=== PATIENT | male | born 1985 | race African-American/Black ===

== ENCOUNTER 2016-12-16 09:48 | Emergency (ER) | payer OTHER ==
[2016-12-16] MEDS ORDERED: XYLOCAINE 2 % (PLAIN) ONE ×2 (09:50→10:34)
[2016-12-16] MEDS ORDERED: STERILE WATER IRRIGATION IR ONE (09:53)
[2016-12-16] MEDS ORDERED: NS IRRIGATION 1000 ML 1,000 ML ONE (10:11)
[2016-12-16] MEDS ORDERED: ANCEF VIAL 1 GM IM ONE (10:27)
[2016-12-16] MEDS ORDERED: ADACEL TDaP IM ONE ×2 (10:27→10:28)
[2016-12-16] MEDS ORDERED: ANCEF VIAL 1 GM ONE ×2 (10:28→10:47)
--- NOTE | 2016-12-16 10:43 | RAD ---
HISTORY: Trauma with laceration to the heel Study: 3 views of the left foot. Comparison: None Findings: No acute fracture or dislocation. Joint spaces are well aligned. Soft tissue laceration overlying t he calcaneus without underlying bony involvement. IMPRESSION: 1. Laceration as above without definite underlying bony involvement. Reported By:
[2016-12-16] MEDS ORDERED: ANCEF VIAL 1 GM 2 GM in NS 100 ML IV 100 ML IV ONE (10:44)
[2016-12-16] MEDS ORDERED: MORPHINE SULFATE INJ 4 MG IVP ONE (10:45)
[2016-12-16] MEDS ORDERED: ZOFRAN INJ 4 MG VIAL IVP ONE (10:45)
[2016-12-16 10:46] VITALS: BP 122/67; BMI 32.5
[2016-12-16] MEDS ORDERED: ZOFRAN INJ 4 MG VIAL ONE (10:47)
[2016-12-16] MEDS ORDERED: NS 1000 ML 1,000 ML ONE (10:47)
[2016-12-16] MEDS ORDERED: MORPHINE SULFATE INJ 4 MG ONE (10:48)
[2016-12-16] MEDS ORDERED: NS 50 ML IV 50 ML IV ONE (10:48)
[2016-12-16] MEDS ORDERED: NS 1000 ML 1,000 ML IV SCH (11:00)
--- NOTE | 2016-12-16 11:36 | DR.LACERAT ---
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 TD IS NOT UTD. - Complaints Chief Complaint Doctors Comments: LACERATION BACK LEFT HEEL. 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) Tetanus Vaccination: No - Severity Pain Severity: Severe Bleeding:: Uncontrolled - Associated Signs and Symptoms Associated Signs and Symptoms: None PMH - PMH Past Medical History: No Past Surgical History: No - Family History History of Family Medical Conditions: No - Social History Does patient currently use any type of tobacco product: Yes Have you used tobacco products in the last 12 months: Yes Type of Tobacco Use: Cigarettes Does any household member use tobacco: No Alcohol Use: None Do you use any recreational Drugs:: No Lives With: Other Lives [facility]: [facility] - infectious screening In the last 2 months have you had wt loss of >10#?: NO Have you had fever, night sweats or hemotysis?: No Have you traveled outside the country in the last 6 months?: No Isolation: Standard ROS - Review of Systems Constitutional: No Symptoms Reported Eyes: No Symptoms Reported ENTM: No Symptoms Reported Respiratoy: No Symptoms Reported Cardiovascular: No Symptoms Reported Gastrointestinal/Abdominal: No Symptoms Reported Genitourinary: No Symptoms Reported Neurological: No Symptoms Reported Musculoskeletal: Left, Foot (PAIN AND LACERATION) Integumentary: Wound ( AVUSION LAC LT HEEL 6CM AND 2CM.) Hematologic/Lymphatic: No Symptoms Reported Endocrine: No Symptoms Reported All Other Systems: Reviewed and Negative PE - Vital Signs Vitals: Temperature 98.9 F Pulse Rate 81 Respiratory Rate 18 Blood Pressure 122/67 O2 Sat by Pulse Oximetry 100 - General Limitations: No Limitations General Appearance: Alert - Head Head Exam: Normal Inspection - Eyes Eye exam: Normal Appearance - ENT ENT Exam: Normal Exam - Neck Neck Exam: Normal Inspection - Chest Chest Inspection: Symmetric Chest Wall Rise - Respiratory Respiratory Exam: Normal Lung Sounds Bilat Respiratory Exam: Bilateral Clear to Auscultation - Cardiovascular Cardiovascular Exam: Regular Rate, Normal Rhythm, Normal Heart Sounds - Abdominal Exam Abdominal Exam: Normal Bowel Sounds, Soft. negative: Tenderness - Extremities Extremities Exam: Tenderness (LACERATION LT HEEL.) - Back Back Exam: Normal Inspection - Neurologic Neurological Exam: Alert - Psychiatric Psychiatric Exam: Normal Affect, Normal Mood - Skin Skin Exam: Other (6CM LAC LEFT HEEL) Type of Lesion: Laceration, Other (TENDON INJURY) [facility] - Additional Information Obtained Additional Information Obtained From: Jazz Singer (PRINT LINE OPERATOR.) - Differential Diagnosis Differential Diagnosis: Avulsion, Contusion, Laceration Differential Diagnosis Comment: TENDON LACERATION Course - Treatment Treatment: SEE ORDERS TD, ANCEF, MORPHIN AND FOFRAN IN ED. - Reevaluation 1st: Improved - Consultation Consultation Comments: DISCUSS PATIENT WITH DR. MIKE. HE WILL SEE PATIENT IN HIS OFFICE TODAY FOR FURTHER MANAGEMENT. - Education/Counseling Education/Counseling: Patient, Education Educated On: Treatment, Diagnosis, Needs for Follow Up, Other (PRINT LINE OPERATOR.) ROR - XRAY XRAY Findings: REPORT DISCUSS WITH PATIENT AND PRINT LINE OPERATOR. Procedures - Laceration/Wound Repair Left Foot Wound Length (cm): 6 Wound's Depth, Shape: Irregular, Other (AVULSION SKIN FROM LACERATION) Wound Explored: contaminated Irrigated w/ Saline (ccs): 500 (BETADINE MIX WITH NS) Betadine Prep?: Yes (MIX WITH NS 500CC) Anesthesia: 2% Lidocaine Volume Anesthetic (ccs): 20 - Diagnosis Discharge Problem: Tendon laceration Laceration of left heel Qualifiers: Encounter type: initial encounter Qualified Code(s): S91.312A - Laceration without foreign body, left foot, initial encounter - Discharge Plan Disposition: [facility] Condition: Stable - Follow ups/Referrals Follow ups/Referrals: NFD,None [Primary Care Provider] - 3 days - Instructions Instructions: Laceration Care, Adult, [id number], Foot Contusion, Easy-to- Read, Tendon Injury Additional Instructions: TO DR. DAUGHERTY OFFICE NOW FOR FURTHER MANAGEMENT.
== END 2016-12-16 12:51 | disposition home or self-care (01) ==
LOC: ER 09:51
PROC: 0YQN0ZZ Repair Left Foot, Open Approach (ICD-10-PCS; principal; 2016-12-16)
DX: S96.2 Injury of intrinsic muscle and tendon at ankle and foot level (principal); S91.312A Laceration without foreign body, left foot, initial encounter; W28.XXXA Contact with powered lawn mower, initial encounter; Y92.9 Unspecified place or not applicable
CPT/HCPCS: 73630; 90471; 96365; 96367; 96374; 96375; 99283; 99285; A4217; A4222; J0690; J2001; J2270; J2405

== ENCOUNTER 2017-01-18 19:33 | Emergency (ER) | payer OTHER ==
[2017-01-18 19:37] VITALS: BMI 33.1
--- NOTE | 2017-01-18 19:38 | DR.GENAD ---
HPI - HPI Comment HPI Comment: HISTORY BELOW. - Complaint/Symptoms Chief Complaint Doctors Comments: FELL AT THE LONG TERM AND HAVE RIGHT FOOT AND ANKLE PAIN. LOWER BACK PAIN, RIGHT ELBOW PAIN, NECK PAIN AND HEADACHE. NO LOC. RECENT INJURY RIGHT FOOT. 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) - Timing Came on: Suddenly - Duration Duration: Constant Duration: Hours - Severity Severity: Moderate PMH - PMH Past Surgical History: No - Social History Do you use any recreational Drugs:: No ROS - Review of Systems Constitutional: No Symptoms Reported Eyes: No Symptoms Reported ENTM: No Symptoms Reported Respiratoy: No Symptoms Reported Cardiovascular: No Symptoms Reported Gastrointestinal/Abdominal: No Symptoms Reported Genitourinary: No Symptoms Reported Neurological: Headache Musculoskeletal: Back Pain, Joint Pain, Joint Swelling, Muscle Pain, Neck Pain, Elbow, Ankle, Foot Integumentary: Bruises Hematologic/Lymphatic: No Symptoms Reported Endocrine: No Symptoms Reported All Other Systems: Reviewed and Negative PE - Vital Signs Vitals: Temperature 98.1 F Pulse Rate [Left] 70 Pulse Rate 95 Respiratory Rate 18 Blood Pressure [Right Arm] 145/84 Blood Pressure 121/74 O2 Sat by Pulse Oximetry 99 - General Limitations: No Limitations General Appearance: Alert - Head Head Exam: Normal Inspection, Other (HEADACHE) - ENT ENT Exam: Normal Oropharynx, Normal External Ear Exam, Mucous Membranes Moist, TM's Normal Bilaterally External Ear Exam: Normal External Inspection TM/Canal Exam: Bilateral Normal Nose Exam: Normal Nose Exam Mouth Exam: Normal Inspection Throat Exam: Normal Inspection - Neck Neck Exam: Trachea Midline, Tenderness (POSTERIOR NECK TENDERNESS) - Chest Chest Inspection: Symmetric Chest Wall Rise - Respiratory Respiratory Exam: Normal Lung Sounds Bilat Respiratory Exam: Bilateral Clear to Auscultation - Cardiovascular Cardiovascular Exam: Regular Rate, Normal Rhythm, Normal Heart Sounds - Abdominal Exam Abdominal Exam: Normal Bowel Sounds, Soft. negative: Tenderness - Extremities Extremities Exam: Tenderness (RIGHT ELBOW, LEFT FOOT LEFT ANKLE TENDERNESS.) - Back Back Exam: Vertebral Tenderness (LUMBAR SPINE TENDERNESS.) - Neurologic Neurological Exam: Alert, Oriented X3, CN II-XII Intact, Reflexes Normal. negative: Motor Sensory Deficit - Psychiatric Psychiatric Exam: Anxious - Skin Skin Exam: Erythema MDM - Differential Diagnosis Differential Diagnosis: CONTUSION, STRAIN, SPRAIN, FRACTURE Course - Treatment Treatment: SEE ORDERS - Consultation Consultation Comments: DR. REGAN AT [facility] ACCEPTED PATIENT FOR TRANSFER. ROR - XRAY XRAY Interpreted by: Radiologist XRAY Findings: REPORT DISCUSS WITH PATIENT. - Diagnosis Discharge Problem: Strain of neck muscle Qualifiers: Encounter type: initial encounter Qualified Code(s): S16.1XXA - Strain of muscle, fascia and tendon at neck level, initial encounter Dislocation of cervical facet joint Qualifiers: Encounter type: initial encounter Qualified Code(s): S13.101A - Dislocation of unspecified cervical vertebrae, initial encounter Lumbar strain Qualifiers: Encounter type: initial encounter Qualified Code(s): S39.012A - Strain of muscle, fascia and tendon of lower back, initial encounter Elbow contusion Qualifiers: Encounter type: initial encounter Laterality: right Qualified Code(s): S50.01XA - Contusion of right elbow, initial encounter Foot contusion Qualifiers: Encounter type: initial encounter Laterality: left Qualified Code(s): S90.32XA - Contusion of left foot, initial encounter Ankle contusion Qualifiers: Encounter type: initial encounter Laterality: left Qualified Code(s): S90.02XA - Contusion of left ankle, initial encounter Closed head injury Qualifiers: Encounter type: initial encounter Qualified Code(s): S09.90XA - Unspecified injury of head, initial encounter - Discharge Plan Disposition: [facility] Condition: Stable - Follow ups/Referrals Follow ups/Referrals: NFD,None [Primary Care Provider] - 3 days - Instructions
--- NOTE | 2017-01-18 20:28 | CT ---
CT brain without contrast Indication: Fall with headache Comparison: None available Technique: Multiple axial images of the brain were obtained from the skull base to the vertex without administra tion of IV contrast. Coronal and sagittal images were also provided. Radiation dose reduction techniques were performed utilizing adjustment for MA/kVP based on patient body size. Findings: No acute intraparenchymal hemorrhage or mass can be identified. No extra-axial fluid collections are seen. No alteration in the attenuation of the brain parenchyma can be identified to suggest acute o r subacute ischemic change. The ventricular system is symmetric and nondilated. The extracranial st ructures are grossly unremarkable. IMPRESSION: 1. No acute intracranial process is identified. Reported By:
--- NOTE | 2017-01-18 20:33 | CT ---
CT cervical spine without contrast Indication: Fall with neck pain Comparison: None available Technique: Multiple axial images of the cervical spine were obtained from the skull base to the thora cic inlet without administration of IV contrast. Sagittal and coronal reformats were performed and r eviewed. Radiation dose reduction techniques were performed utilizing adjustment for MA/kVP based on patient body size. Findings: There is a unilateral right-sided locked C4 facet seen best on sagittal image 35. Alignment of the cervical spine is maintained. No evidence for acute cortical disruption or subluxat ion can be seen. The posterior elements appear unremarkable. The prevertebral soft tissues are norm al in their appearance. In addition, the surrounding paraspinous soft tissues are unremarkable. IMPRESSION: 1.Unilateral right-sided locked C4 facet, the acuity of this abnormality is questioned as no other in flammatory change or traumatic injury identified. Nonetheless given the risk for future neurologic in jury followup neurosurgical consultation/evaluation is recommended. 2. No acute vertebral body fracture or spondylolisthesis. Reported By:
--- NOTE | 2017-01-18 20:34 | CT ---
CT lumbar spine without contrast Indication: Fall with back pain Comparison: None available Technique: Multiple axial images of the lumbar spine were obtained from the upper abdomen to the pelv is without administration of IV contrast. Sagittal and coronal reformats were performed and reviewed . Radiation dose reduction techniques were performed utilizing adjustment for MA/kVP based on patient body size. Findings: Alignment of the lumbar spine is maintained. No evidence for acute cortical disruption or subluxatio n can be seen. The posterior elements appear unremarkable. The prevertebral soft tissues are normal in their appearance. In addition, the surrounding paraspinous soft tissues are unremarkable. IMPRESSION: 1. No evidence for traumatic injury of the lumbar spine. Reported By:
--- NOTE | 2017-01-18 20:58 | RAD ---
Three views of the left ankle. Indication: Ankle pain after fall Findings: Evaluation left ankle is limited by external casting material obscuring fine bone detail. T he there is mild soft tissue swelling within the left ankle. There is no fracture or malalignment of the ankle joint. Ankle mortise is symmetric. No osteochondral abnormality within talar dome. Impression: Mild soft tissue swelling within the left ankle without acute fracture or malalignment. Reported By:
--- NOTE | 2017-01-18 21:00 | RAD ---
Four views of the left foot Indication: Left foot pain post fall. Findings: No acute fracture or malalignment of the left foot. Lisfranc joint alignment is maintained. No localizing soft tissue swelling. There is skin irregularity posterior to the calcaneus with multiple tiny radiodensities within the he el fat pad posterior to the calcaneus needing clinical correlation for ulceration/soft tissue injury and or radiopaque foreign bodies within subcutaneous tissues of the left heel. Additionally clinical correlation is needed to evaluate for Achilles tendon injury given the proximity of skin irregularity and soft tissue swelling. Impression: See above. Reported By:
--- NOTE | 2017-01-18 21:00 | RAD ---
HISTORY: Right elbow pain. Study: 3 view series right elbow joint. Comparison: None Findings: No acute fracture, subluxation, or dislocation is identified. No lytic or bone forming lesions are se en. No osteochondral defects are observed. There is no evidence for significant degenerative arthrosi s and or focal joint erosion. No elbow intra-articular loose bodies are seen. No joint effusion is se en. The radial head is unremarkable in its appearance. IMPRESSION: 1. Negative elbow joint exam. Reported By:
[2017-01-18] MEDS ORDERED: MORPHINE SULFATE INJ 4 MG IVP ONE (23:31)
[2017-01-18] MEDS ORDERED: ZOFRAN INJ 4 MG VIAL IVP ONE (23:31)
[2017-01-18] MEDS ORDERED: ZOFRAN INJ 4 MG VIAL ONE (23:32)
[2017-01-18] MEDS ORDERED: MORPHINE SULFATE INJ 4 MG ONE (23:32)
[2017-01-18 23:41] VITALS: BP 145/84
== END 2017-01-18 23:55 | disposition short-term general hospital (02) ==
LOC: ER 19:33
DX: S16.1XXA Strain of muscle, fascia and tendon at neck level, initial encounter (principal); S13.101A Dislocation of unspecified cervical vertebrae, initial encounter; S39.012A Strain of muscle, fascia and tendon of lower back, initial encounter; S50.01XA Contusion of right elbow, initial encounter; S90.02XA Contusion of left ankle, initial encounter; S09.8XXA Other specified injuries of head, initial encounter; W19.XXXA Unspecified fall, initial encounter; Y92.9 Unspecified place or not applicable
CPT/HCPCS: 70450; 72125; 72131; 73070; 73610; 73630; 96365; 96374; 96375; 99284; 99285; A4222; J2270; J2405